=== PATIENT | male | born 2000 | race Caucasian/White ===

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

== ENCOUNTER 2024-07-15 15:40 | Emergency (ER) | payer SELFPAY ==
[2024-07-15] MEDS: Lidocaine/Epineph/Tetracaine 3 ML Syringe TOP ONE (16:30)
[2024-07-15] MEDS: Diphtheria,Pertussis(Acell),Tetanus Vaccine 0.5 ML Syringe IM ONE (16:31)
[2024-07-15 16:44] VITALS: PULSE 88
[2024-07-15 17:55] VITALS: BP 118/71
== END 2024-07-15 17:43 | disposition home or self-care (01) ==
LOC: MW.ED 15:40
DX: S91.115A Laceration without foreign body of left lesser toe(s) without damage to nail, initial encounter (principal); Z88.8 Allergy status to other drugs, medicaments and biological substances; Z75.8 Other problems related to medical facilities and other health care; Z23 Encounter for immunization; W11.XXXA Fall on and from ladder, initial encounter; Y93.89 Activity, other specified
CPT/HCPCS: 12001; 90471; 90715; 99282; A9270; 99283